=== PATIENT | female | born 2005 | race Caucasian/White ===

== ENCOUNTER 2024-04-24 23:01 | Emergency (ER) | payer OTHER, SELFPAY ==
--- NOTE | ~2024-04-24 | XR_ITS ---
EXAMINATION: XR ANKLE 2 VIEWS RIGHT, XR FOOT 1-2 VIEWS RIGHT CLINICAL INFORMATION: Ankle injury. Foot injury. COMPARISON: None. TECHNIQUE: 3 view series right foot; 2 view series right ankle FINDINGS: Right ankle: Asymmetric soft tissue prominence is present adjacent to the lateral malleolus. The talar dome appears intact. Mild asymmetric soft tissue prominence which may represent body habitus is noted adjacent to the lateral malleolus. The talar dome appears intact. The distal fibula and tibia appear intact. Partial visualization is made of an avulsion fracture of the base of the fifth metatarsal with minimal displacement. Right foot: Minimally displaced avulsion fracture of the base of the fifth metatarsal is noted. The subtalar joints are normal in appearance. No midfoot subluxations or fractures visualized. XR/XR foot RT 2V IMPRESSION: *Minimally displaced avulsion fracture of the base of the fifth metatarsal. Electronically signed by: John Prince MD 04/25/2024 12:41 AM EDT
--- NOTE | ~2024-04-24 | XR_ITS ---
EXAMINATION: XR ANKLE 2 VIEWS RIGHT, XR FOOT 1-2 VIEWS RIGHT CLINICAL INFORMATION: Ankle injury. Foot injury. COMPARISON: None. TECHNIQUE: 3 view series right foot; 2 view series right ankle FINDINGS: Right ankle: Asymmetric soft tissue prominence is present adjacent to the lateral malleolus. The talar dome appears intact. Mild asymmetric soft tissue prominence which may represent body habitus is noted adjacent to the lateral malleolus. The talar dome appears intact. The distal fibula and tibia appear intact. Partial visualization is made of an avulsion fracture of the base of the fifth metatarsal with minimal displacement. Right foot: Minimally displaced avulsion fracture of the base of the fifth metatarsal is noted. The subtalar joints are normal in appearance. No midfoot subluxations or fractures visualized. XR/XR ankle RT 2V IMPRESSION: *Minimally displaced avulsion fracture of the base of the fifth metatarsal. Electronically signed by: John Prince MD 04/25/2024 12:41 AM EDT
[2024-04-24 23:06] VITALS: BP 127/77; PULSE 93; RESP 16; TEMP 36.6; O2SAT 98; BMI 40.7
--- NOTE | 2024-04-25 01:19 | ED.LOWEXIN ---
HPI - Extremity Injury (Lower) General Chief Complaint: Extremity Injury, Lower Stated Complaint: right ankle pain Time Seen by Provider: 04/25/24 01:18 Source: patient and family Mode of arrival: ambulatory Limitations: no limitations History of Present Illness ED Provider: Dr. Juwan Cantu HPI Narrative: 18-year-old female with no significant past medical history who presents emergency department for evaluation of right ankle and foot sprain. The patient states that on 04/20/2024 she was playing with her daughter and rolled her ankle and foot. She states that she felt at least 3 cracks when she inverted her foot and ankle. She states that since that time her ankle and foot is become more swollen. She has been applying ice and keeping her leg elevated with no improvement. She states that she has had difficulty walking secondary to the severity of her pain. Related Data Allergies Allergy/AdvReac Type Severity Reaction Status Date / Time No Known Allergies Allergy Verified 04/24/24 23:07 Review of Systems Review of Systems: Yes all other systems are reviewed and are negative [facility] Social History Social History Advance Directives: No Advance Directives Information Provided: No Do you have a plan to hurt others: No Plan Physical Exam Vital Signs: Vital Signs: Last Vital Signs Temp 98.1 F 04/25/24 02:31 Pulse 88 04/25/24 02:31 Resp 18 04/25/24 02:31 BP 112/73 04/25/24 02:31 Pulse Ox 100 04/25/24 02:31 O2 Del Method Room Air 04/25/24 02:31 BMI result Body Mass Index 40.7 Vital signs were normal Extremity exam: The patient has significant soft tissue swelling of her right foot and right ankle. She has no localizing point tenderness but has significant tenderness with the patient patient of her foot, lateral and medial malleolus. She was limited ability to move her foot and ankle secondary to her pain. Her extremities neurovascularly intact. Patient has an abrasion to the left knee with white cicatrix with no signs of cellulitis. Medical Decision Making Medical Decision Making [facility] Narrative: 18-year-old female who presents emergency department for evaluation of bright foot and ankle pain and swelling after an inversion injury 4 days prior. Patient's vital signs were normal. Patient was significant swelling of her right foot and ankle with diffuse tenderness but no localizing tenderness. Extremities neurovascularly intact. Differential diagnosis: ?Includes but is not limited to right ankle sprain, right ankle fracture, right foot sprain, right foot fracture Course: My interpretation patient's x-ray of her right foot and right ankle was no acute fractures seen. The radiologist did note a avulsion fracture of the base of the right 5th metatarsal however I am having difficulty seeing this fracture. I did discuss my reading in the radiology reading with the patient. My impression is that the patient has a severe ankle and foot sprain from her inversion injury and I told her that an avulsion fracture and sprain is treated similarly. The patient was placed in a walking boot and given crutches. She was advised to keep her foot and ankle elevated and apply ice for 15 minutes 4 to 6 times a day over the next 3-4 days. The patient will need to follow-up with the orthopedic providers in 1-2 weeks for re-evaluation. The patient may benefit from physical therapy once the soft tissue swelling improves. Patient was given printed and verbal instructions and discharged home. Admission/Observation Consideration of admission/observation: Escalation of care including admission/observation considered (No) Independent Interpretation I performed an independent interpretation of an: Plain X-Ray Interpretation: My independent interpretation the patient's right foot and right ankle x-rays are as follows: No acute fracture seen. The radiologist did know a minimally displaced avulsion fracture of the base of the 5th metatarsal. Radiology Impression Discussion of test interpretation with radiology: I have reviewed the radiologist's reading. Radiologist Impression: XR foot RT 2V and XR right ankle IMPRESSION: *Minimally displaced avulsion fracture of the base of the fifth metatarsal. Dictated By: John Prince MD Independent Historian Clinical information obtained from an independent historian. History obtained from or confirmed by: Parent Discharge Plan Discharge Clinical Impression: Avulsion fracture of metatarsal bone of right foot, Sprain of foot, right, Sprain of ankle, right, Abrasion of knee, left Patient Disposition: Home, Self-Care Instructions: Crutch Instructions (ED), Sprain (ED), R.I.C.E. Treatment (ED) Additional Instructions: Your physical examination is consistent with a severe sprain of your right foot and ankle. The radiologist noted an avulsion fraction (small piece of bone that was pulled off) of the base of your right 5th metatarsal-see the radiology reading below. Wear the walking boot for 1-2 weeks in use the crutches for 1 week. Keep your foot elevated and apply ice for 15 minutes 4 to 6 times a day to help reduce the swelling for the next 2-3 days. Take ibuprofen 200 mg pills, 2 pills every 6 hours as needed for pain or fever. Take Tylenol (acetaminophen) 500 mg pills, 2 pills every 6 hours as needed for pain or fever. Clean the left knee abrasion with soap and water and gently scrub it with a washcloth. Do this twice a day and after you clean the abrasion apply bacitracin. Watch for signs of infection which would include increased redness, increased swelling, drainage of pus, red streaks going away from the wound. Follow-up with our orthopedic providers in 1-2 weeks for re-evaluation. Please return to the emergency department if your symptoms get worse or if you develop any symptoms that are concerning to you. XR foot RT 2V IMPRESSION: *Minimally displaced avulsion fracture of the base of the fifth metatarsal. Dictated By: John Prince MD Referrals: Ron Magaña MD [Physician] - 2 weeks (Right ankle sprain and foot sprain with small avulsion to the right 5th metatarsal base) Print Language: Nigerien
[2024-04-25 02:31] VITALS: BP 112/73; PULSE 88; RESP 18; TEMP 36.7; O2SAT 100
[2024-04-25] MEDS: Bacitracin Oint 0.9 GM PACKET 1 APPL TOPICAL (02:41)
[2024-04-25 02:42] VITALS: BP 112/73; PULSE 88; RESP 18; TEMP 36.7; O2SAT 100
== END 2024-04-25 02:43 | disposition home or self-care (01) ==
PROVIDERS: Emergency Provider Emergency Medicine Emergency Medical Services
DX: S92.301A Fracture of unspecified metatarsal bone(s), right foot, initial encounter for closed fracture (principal); S93.601A Unspecified sprain of right foot, initial encounter; S90.512A Abrasion, left ankle, initial encounter; M25.571 Pain in right ankle and joints of right foot; X50.1XXA Overexertion from prolonged static or awkward postures, initial encounter; Y93.89 Activity, other specified; Y92.89 Other specified places as the place of occurrence of the external cause; Y99.8 Other external cause status
CPT/HCPCS: 73600; 73620; 99282; 99283